=== PATIENT | female | born 1990 | race Caucasian/White ===

== ENCOUNTER 2017-02-05 20:56 | Inpatient (IN) | payer OTHER ==
[~2017-02-05] VITALS: Ht 172.7 cm; Wt 84.8 kg
[~2017-02-05 20:56] MED LIST: OXYC1TAB24 PO; augmentin PO
[2017-02-05 22:13] LABS: Mean Corpuscular Hemoglobin 30.7 pg (27.0-35.0); Mean Corpuscular Volume 91.6 fL (81-100)
[2017-02-05] MEDS ORDERED: hydrALAZINE 20 mg/mL Inj IVPUSH PRN (23:25)
[2017-02-05] MEDS ORDERED: Penicillin G K Inj 5,000,000 UNITS in Dextrose 5% Minibag Plus 100 ML IV ONE (23:30)
[2017-02-05] MEDS ORDERED: Hemorrhage Kit, Post Partum XX ONE (23:30)
[2017-02-05] MEDS ORDERED: Oxytocin 30 Units/500 mL LR 30 UNITS in IV Premix 1 EACH IV PRN (23:30)
[2017-02-05] MEDS ORDERED: Sodium Chloride LOK Flush 10 mL Syringe IVFLUSH PRN (23:30)
[2017-02-05] MEDS ORDERED: Methylergonovine 0.2 mg/mL Inj IM PRN (23:30)
[2017-02-05] MEDS ORDERED: Oxytocin 10 Unit/mL Inj IM PRN (23:30)
[2017-02-05] MEDS ORDERED: Carboprost 250 mCg/mL Inj IM PRN (23:30)
[2017-02-05] MEDS ORDERED: fentaNYL-PF 50 mCg/mL 2 mL Inj IVPUSH PRN (23:30)
[2017-02-06] MEDS: Misoprostol 25 mCg/0.25 Tablet VAGINAL PRN ×2 (00:01→04:00)
[2017-02-06] MEDS: Lactated Ringer's 1,000 ML IV PRN ×2 (00:06→09:49)
[2017-02-06] MEDS: Ondansetron 2 mg/mL 2 mL Inj IVPUSH PRN ×2 (00:49→07:29)
[2017-02-06] MEDS: Labetalol 5 mg/mL 4 mL Inj IV PRN ×3 (00:53→09:43)
[2017-02-06] MEDS: Penicillin G K Inj 3,000,000 UNITS in IV Premix 1 EACH IV SCH ×2 (04:01→08:16)
[2017-02-06] MEDS ORDERED: Oxytocin 30 Units/500 mL LR 30 UNITS in IV Premix 1 EACH IV PRN ×2 (08:05→11:20)
--- NOTE | 2017-02-06 10:05 | PCM.PNOBIP ---
Subjective Date of Service Feb 06, 2017 Delivery plan: Spontaneous Vaginal Delivery Visit History Interval check on progress of patient admitted for term labor induction for gestational hypertension. Subjective Patient currently nauseated. Receiving a dose of 20mg IV labetalol for serial BPs elevated above threshold levels. No headache or scotomata. Pain Management: IV Push, Good Pain Control Gastrointestinal: Complains of Nausea, Vomitting Labs Laboratory Tests 02/05/17 22:00: White Blood Count 16.3, Red Blood Count 4.27, Hemoglobin 13.1, Hematocrit 39.1, Mean Corpuscular Volume 91.6, Mean Corpuscular Hemoglobin 30.7, Mean Corpuscular Hemoglobin Concent 33.5, Red Cell Distribution Width 13.4, Platelet Count 213, Hematology Comments Exam Vital Signs Vital Signs Contraction frequency in minutes: MVUs: Vital Signs: VS reviewed, concerns are (elevated BPs just prior to my arrival ( 167/99, 146/96, 167/99)) Heart Tracings Heart Tones Baseline 135 bpm Heart Rate Variability: Moderate Heart Rate Accelleration: Present Heart Rate Deceleration: Absent Heart Rate Category: I Tocometry/IUPC Contraction frequency in minutes: 2 Sterile Vaginal Exam Cervical Dilation: 9 cms Cervical Effacement: 100 % Station: 0 OB Intrapartum Assessment/Plan Assessment Labor progressing. Blood pressures now with several recent readings >160/110. Problems: (1) Gestational [-induced] hypertension without significant proteinuria , third trimester Plan: Repeat PIH labs ordered. She has received a 20mg and 40mg dose of labetalol. There is no additional labetalol currently available from the pharmacy. Plan for IV hydralazine. Will continue active management of labor with IV oxytocin. Status: Acute ICD Code: O13.3 Pain Evaluation: Adequate Pain Control Intrapartum Antibiotics: Huey Calvert MD Feb 06, 2017 10:05
[2017-02-06 10:28] LABS: Mean Corpuscular Hemoglobin 30.2 pg (27.0-35.0); Mean Corpuscular Volume 86.9 fL (81-100)
--- NOTE | 2017-02-06 11:17 | PCM.OBVAG ---
Vaginal Delivery Date of Service Feb 06, 2017 Pre Operative Diagnosis Pre Operative Diagnosis Labor induction for gestational hypertension at term gestation Post Operative Diagnosis Post Operative Diagnosis 1.) Term gestation, delivered 2.) Gestational hypertension Procedure Obstetical Procedure: Normal Spontaneous Vaginal Delivery, Repair of Perineal Tear (1st degree -- repaired with running 3-O Vicryl in running fashion) Coordinate Measuring Machine Operator/Material Yard Clerk Provider and Material Yard Clerk: Huey Rick MD Indication for Procedure Induction: Induction of labor (for gestational hypertension), SROM, Progressed normally through labor Findings Obstetrical Findings: (Male), Cord (3 Vessel), Presentation (Vertex), 1 minute (8), 5 minutes (9), Placenta (Intact/Normal), Perineal Laceration (1st degree) Analgesia/Medications Procedural Analgesia: None Procedure Details Procedure Details Patient presented to triage at 38 1/7 weeks EGA complaining of headache and intermittent scotomata earlier in the day. Blood pressures were noted to be persistently elevated in the 140s-150s/90s-edf147g while in triage. Labwork was sent, to help rule out preeclampsia. All of her labwork returned reassuring. However, given her elevated BP readings, it was elected to admit her for labor induction and continue to monitor blood pressures. Induction was initiated with vaginal misoprostol x 2 doses. She was then transitioned to IV oxytocin. Several hours after admission her blood pressures elevated to threshold levels for medication intervention. She was given a single dose of 20mg IV labetalol, which lowered her pressures for several hours. A couple of hours prior to delivery her blood pressures again tammy, now to 160s-180s/100s- 110s. [facility] labs were again ordered. She received serial doses of 20mg and 40mg of IV labetalol. She did not receive an 80mg dose as there was no more left in the pharmacy supply. She subsequently delivered prior to planned administration of IV hydralazine. Blood Loss & Administration Estimated Blood Loss: 250 Blood Admin during procedure: No Post Procedure Plan Post delivery Condition: Mom stable, Baby stable to nursery Huey Rick MD Feb 06, 2017 11:17
[2017-02-06] MEDS ORDERED: Lactated Ringer's 1,000 ML IV SCH (11:19)
[2017-02-06] MEDS ORDERED: HYDROcodone-APAP 5-325 mg Tablet PO PRN (11:20)
[2017-02-06] MEDS ORDERED: Oxytocin 10 Unit/mL Inj IM PRN (11:20)
[2017-02-06] MEDS ORDERED: Witch Hazel-Glycerin Pads TOPICAL PRN (11:20)
[2017-02-06] MEDS ORDERED: Carboprost 250 mCg/mL Inj IM PRN (11:20)
[2017-02-06] MEDS ORDERED: Methylergonovine 0.2 mg/mL Inj IM PRN (11:20)
[2017-02-06] MEDS ORDERED: Benzocaine (Dermoplast) 20% 60 Gm Spray TOPICAL PRN (11:20)
[2017-02-06] MEDS ORDERED: LANOlin HPA 7 Gm Ointment TOPICAL PRN (11:20)
[2017-02-06] MEDS ORDERED: Hemorrhage Kit, Post Partum XX ONE (11:20)
[2017-02-07 06:38] LABS: Mean Corpuscular Hemoglobin 30.3 pg (27.0-35.0); Mean Corpuscular Volume 90.8 fL (81-100)
[2017-02-07 08:36] LABS: Mean Corpuscular Hemoglobin 30.3 pg (27.0-35.0); Mean Corpuscular Volume 91.3 fL (81-100)
--- NOTE | 2017-02-07 14:35 | NUR ---
Social work note - Family Assessment Sadie Motley, STANTON. DORA Cardenas Reason for Consult - THC during . Living situation: MOB, FOB and two yr old sibling live together in [place]. No previous CPS involvement. Substance use Hx: MOB used THC during to help with nausea. Denies any other drug use, denies any pain medications. UDS was not obtained, Cord Stat pending. Mental Health: MOB denies any mental health hx. 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 DV: No identified issues. Supports: STANTON states that she has large amounts of supports from FOB and extended family. FOB works part time flexible clerk, family is not eligible for WIC. Assessment: MOB exposed baby to THC during - Denies dependence, denies need for rehab or treatment. Plan: Mandated realtime court reporter to CPS. SHOE SALESMAN filed report. SHOE SALESMAN explained process to MOB and answered questions. No other needs identified. erick Prince, CAR LOADER
--- NOTE | 2017-02-07 19:10 | PCM.PNOBPP ---
Subjective Date of Service February 07, 2017 Post : Spontaneous Vaginal Delivery Visit History PPD#1 Subjective Patient feeling well. Without complaints. Baby is currently in the SCN, being monitored/evaluated for tremulousness. Lochia: Normal Pain Management: No or Minimal Pain Gastrointestinal: Good Appetite, No N/V Postop Activity: Ambulating Independently Labs Laboratory Tests 02/05/17 22:00: Hematology Comments 02/07/17 08:30: White Blood Count 14.8, Red Blood Count 4.36, Hemoglobin 13.2, Hematocrit 39.8, Mean Corpuscular Volume 91.3, Mean Corpuscular Hemoglobin 30.3, Mean Corpuscular Hemoglobin Concent 33.2, Red Cell Distribution Width 13.6, Platelet Count 208 Exam Vital Signs Vital Signs: VS reviewed, concerns are (persistently elevated blood pressures) Exam Abdomen: Uterus is (U-1), Fundus firm, Abdomen soft, Abdomen non-tender Perineum: Laceration : Voiding without difficulty Extremities: No cords, No tenderness/swelling Lungs: Clear to Auscultation, Normal Air Movement Heart: Normal S1, Normal S2, No Murmurs/Rubs/Gallops General: Alert, Oriented X3, Cooperative, No Acute Distress OB Post Assessment/Plan Assessment PPD#1 -- persistent asymptomatic hypertension. Otherwise doing well. Problems: (1) Gestational [-induced] hypertension without significant proteinuria , third trimester Status: Resolved ICD Code: O13.3 (2) Hypertension in , condition Plan: Will discharge with oral labetalol. Re-evaluate blood pressures . Status: Acute ICD Code: O16.5 (3) with 38 completed weeks gestation Status: Acute ICD Code: Z3A.38 (4) Spontaneous vaginal delivery Status: Acute ICD Code: O80 Pain Evaluation: Adequate Pain Control Post plan: Discharge to [facility] status Huey Rick MD February 07, 2017 19:10
--- NOTE | 2017-02-07 19:16 | PCM.DC.OB ---
Obstetrical Discharge Summary Date of Service February 07, 2017 Date of hospital admission Feb 05, 2017 at 22:36 Date of Discharge: February 07, 2017 Providers Admitting Physician: Huey Rick MD Primary Care Physician: Huey Rick MD Attending Physician: Huey Rick MD Problems: (1) Gestational [-induced] hypertension without significant proteinuria , third trimester Status: Resolved ICD Code: O13.3 (2) Hypertension in , condition Status: Acute ICD Code: O16.5 (3) with 38 completed weeks gestation Status: Acute ICD Code: Z3A.38 (4) Spontaneous vaginal delivery Status: Acute ICD Code: O80 Brief History and Physical: Patient is a 26 year-old , who presented to triage at 38 1/7 weeks EGA complaining of headache and intermittent scotomata earlier in the day. Blood pressures were noted to be persistently elevated in the 140s-150s/[id number] while in triage. Labwork was sent, to help rule out preeclampsia. All of her labwork returned reassuring. However, given her elevated BP readings, it was elected to admit her for labor induction and continue to monitor blood pressures. Hospital Course: Induction was initiated with vaginal misoprostol x 2 doses. She was then transitioned to IV oxytocin. Several hours after admission her blood pressures elevated to threshold levels for medication intervention. She was given a single dose of 20mg IV labetalol, which lowered her pressures for several hours. A couple of hours prior to delivery her blood pressures again tammy, now to 160s-180s/100s-110s. [facility] labs were again ordered and were reassuring. She received serial doses of 20mg and 40mg of IV labetalol. She did not receive an 80mg dose as there was no more left in the pharmacy supply. She subsequently delivered prior to planned administration of IV hydralazine. She delivered via uncomplicated . blood pressures initially looked good but remained significantly elevated on day 1. She remained asymptomatic. Oral labetalol was initiated, which she tolerated well. She will continue this on an outpatient basis. ([augmentin]) 875 MG PO BID (Reported) oxyCODONE-Acetaminophen 5-325 mg (oxyCODONE-Acetaminophen 5-325 mg) 1 Each Tablet 1 TAB PO Q6H PRN PRN For Pain (Reported) Discharge Medications: Labetalol 100mg by mouth twice daily. Disposition Home. Follow-up plan 2 weeks and 6 weeks . Discharge Diet: No restrictions Discharge Activity-General: Pelvic Rest for 6 weeks Huey Rick MD February 07, 2017 19:16
--- NOTE | 2017-02-07 19:21 | PCM.DIOB ---
Obstetrical Disch Instruction Date of Service: February 07, 2017 Dates of Hospitalization Date of Hospital Admission Feb 05, 2017 at 22:36 Providers Admitting Physician: Huey Rick MD Primary Care Physician: Huey Rick MD Attending Physician: Huey Rick MD Discharge Diagnosis Problems: (1) Gestational [-induced] hypertension without significant proteinuria , third trimester Status: Resolved ICD Code: O13.3 (2) Hypertension in , condition Status: Acute ICD Code: O16.5 (3) with 38 completed weeks gestation Status: Resolved ICD Code: Z3A.38 (4) Spontaneous vaginal delivery Status: Resolved ICD Code: O80 Diet Discharge Diet: No restrictions Activity Discharge Activity-General: Pelvic Rest for 6 weeks Dressing and Incisional Care Hygiene: February shower Follow Up Plan Follow-up Provider (F9): Huey Rick MD Follow-up appointment: Weeks (2) Call your provider for: Fever or Chills, Shortness of breath, Heavy vaginal bleeding, Epigastric pain, Vaginal discomfort, Red painful breasts Huey Rick MD February 07, 2017 19:21
[2017-02-07] MEDS ORDERED: LABE100T4 PO (19:23)
[2017-02-07 21:37] VITALS: BP 153/105; PULSE 75; RESP 16
== END 2017-02-07 21:30 | disposition home or self-care (01) | DRG 775 ==
LOC: FBCO 20:56 → FBC 22:36
PROVIDERS: ADMIT Family Medicine; ATTEND Family Medicine
PROC: 10E0XZZ Delivery of Products of Conception, External Approach (ICD-10-PCS; principal; 2017-02-06)
PROC: 0HQ9XZZ Repair Perineum Skin, External Approach (ICD-10-PCS; 2017-02-06)
PROC: 3E033VJ Introduction of Other Hormone into Peripheral Vein, Percutaneous Approach (ICD-10-PCS; 2017-02-06)
DX: O13.4 Gestational [pregnancy-induced] hypertension without significant proteinuria, complicating childbirth (principal); Z37.0 Single live birth; Z3A.38 38 weeks gestation of pregnancy; O70.0 First degree perineal laceration during delivery